=== PATIENT | female | born 1980 | race African-American/Black ===

== ENCOUNTER 2016-10-25 09:59 | Emergency (ER) | payer OTHER ==
[~2016-10-25] VITALS: Ht 157.5 cm; Wt 64.5 kg
[2016-10-25] MEDS ORDERED: HYDROCODONE/ACETAMINOPHEN 5-325 MG TABLET PO ONE (11:00)
[2016-10-25 12:07] VITALS: BP 118/81
== END 2016-10-25 12:07 | disposition home or self-care (01) ==
LOC: EMS 10:02
DX: K04.7 Periapical abscess without sinus (principal); K02.9 Dental caries, unspecified; R51 Headache; F12.90 Cannabis use, unspecified, uncomplicated; F17.210 Nicotine dependence, cigarettes, uncomplicated
CPT/HCPCS: 99283

== ENCOUNTER 2021-12-19 15:42 | Emergency (ER) | payer OTHER ==
[~2021-12-19] VITALS: Ht 157.5 cm; Wt 66.4 kg
[2021-12-19] MEDS ORDERED: MUPI1OIN5 TP (16:46)
[2021-12-19 16:52] VITALS: BP 130/80
== END 2021-12-19 17:15 | disposition home or self-care (01) ==
LOC: EMS 16:07
DX: S00.81XA Abrasion of other part of head, initial encounter (principal); S00.411A Abrasion of right ear, initial encounter; F41.9 Anxiety disorder, unspecified; F32.A Depression, unspecified; F17.210 Nicotine dependence, cigarettes, uncomplicated; F12.90 Cannabis use, unspecified, uncomplicated; Y33.XXXA Other specified events, undetermined intent, initial encounter; Y93.89 Activity, other specified; Y92.89 Other specified places as the place of occurrence of the external cause; Y99.8 Other external cause status
CPT/HCPCS: 99283; Z7502